=== PATIENT | female | born 1950 | race Caucasian/White ===

== ENCOUNTER 2017-10-17 00:20 | Emergency (ER) | payer MEDICARE, OTHER ==
[2017-10-17 00:29] VITALS: BP 198/120
[2017-10-17] MEDS ORDERED: Labetalol 100 MG/20 ML MDV IVPUSH STA (01:13)
--- NOTE | 2017-10-17 01:16 | EDM.PDOC ---
ED HPI GENERAL MEDICAL PROBLEM - General Chief Complaint: Neurological Problem Stated Complaint: NUMBNESS IN SIDE OF FACE AND ARM Time Seen by Provider: 10/17/17 00:50 Source of Information: Reports: Patient History Limitations: Reports: No Limitations - History of Present Illness INITIAL COMMENTS - FREE TEXT/NARRATIVE: The patient states that she has been experiencing a shooting pain that begins in her epigastrium and shoots a few inches to her left lower chest. It is a sharp pain lasting only a moment. She has approximately 2-3 episodes per day, and she has not identified any modifiers. She also reports posterior left mandible pain or numbness intermittently over the past year. When present, it will tend to last for minutes. She also reports feeling cold sweats over the past 2 months, and lightheadedness over the past week. She denies having a headache or blurry vision. She has had nausea, but no emesis, whenever she has a lightheadedness. She states that she sometimes feels shortness of breath, relieved when she sighs. She has also felt palpitations - strong heartbeats, for about one week. She acknowledges that she has been feeling anxious. The patient has been taking Dramamine, which helps. She recently got over a cold , during which time she was taking TheraFlu, Robitussin, and Advil. No recent constipation, diarrhea, or urinary symptoms. The patient states that she has a history of GERD, but does not believe her symptoms could be related to GERD, as she takes omeprazole every day. The patient's PCP is Vivek. Ms. Carballo has not been notified of the patient's symptoms, however, the patient has an appointment to see Kavita Haris this coming 10/20/2017 at 15:30. - Related Data Allergies Allergy/AdvReac Type Severity Reaction Status Date / Time No Known Allergies Allergy Verified 10/17/17 00:29 Home Meds: Home Meds Levothyroxine Sodium [Synthroid] 125 mcg PO DAILY 09/26/14 [History] Omeprazole 20 mg PO DAILY 10/17/17 [History] Past Medical History Gastrointestinal History: Reports: GERD Endocrine/Metabolic History: Reports: Hypothyroidism - Past Surgical History HEENT Surgical History: Reports: Tonsillectomy GI Surgical History: Reports: Cholecystectomy (2010), EGD Female Surgical History: Reports: Oophorectomy (left) Social & Family History - Tobacco Use Smoking Status *Q: Never Smoker - Alcohol Use Alcohol Use History: Yes Days Per Week of Alcohol Use: 0 Alcohol Use Frequency: Rarely - Recreational Drug Use Recreational Drug Use: No - Living Situation & Occupation Living situation: Reports: , Alone Occupation: Retired ED ROS GENERAL - Review of Systems Review Of Systems: ROS reveals no pertinent complaints other than HPI. ED EXAM, GENERAL - Physical Exam Exam: See Below Exam Limited By: No Limitations General Appearance: Alert, WD/WN, No Apparent Distress Eye Exam: Bilateral Eye: Normal Inspection Ears: Normal External Exam, Hearing Grossly Normal Nose: Normal Inspection, No Blood Throat/Mouth: Normal Inspection, Normal Lips, Normal Voice, No Airway Compromise Head: Atraumatic, Normocephalic Neck: Normal Inspection, Full Range of Motion Respiratory/Chest: No Respiratory Distress, Lungs Clear, Normal Breath Sounds, No Accessory Muscle Use, Chest Non-Tender Cardiovascular: Normal Peripheral Pulses, Regular Rate, Rhythm, No Edema, No Gallop, No JVD, No Murmur, No Rub Peripheral Pulses: 4+: Radial (L), Radial (R) GI/Abdominal: Normal Bowel Sounds, Soft, Non-Tender, No Organomegaly, No Distention, No Abnormal Bruit, No Mass (Female) Exam: Deferred Rectal (Female) Exam: Deferred Back Exam: Normal Inspection, Full Range of Motion, NT Extremities: Normal Inspection, Normal Range of Motion, No Pedal Edema, Normal Capillary Refill Neurological: Alert, Oriented, Normal Cognition, No Motor/Sensory Deficits Psychiatric: Normal Affect Skin Exam: Warm, Dry, Intact, Normal Color, No Rash EKG INTERPRETATION EKG Date: 10/17/17 Time: 00:45 Rhythm: NSR Rate (Beats/Min): 82 [place]: Normal P-Wave: Present QRS: Normal ST-T: Normal QT: Normal Comparison: No Change (09/26/2014) Course - Vital Signs Last Recorded V/S: Last Vital Signs Temp 36.6 C 10/17/17 00:25 Pulse 93 10/17/17 00:25 Resp 16 10/17/17 00:25 BP 198/120 H 10/17/17 00:25 Pulse Ox 96 10/17/17 00:25 - Orders/Labs/Meds Orders: Active Orders 24 hr Category Date Time Status EKG Documentation Completion [RC] ASDIRECTED Care 10/17/17 00:38 Active Chest 2V [CR] Stat Exams 10/17/17 01:12 Taken EKG 12 Lead [EK] Stat Ther 10/17/17 00:38 Ordered Labs: Laboratory Tests 10/17/17 10/17/17 10/17/17 Range/Units 01:42 01:42 01:42 WBC 6.96 (3.98-10.04) K/mm3 RBC 4.52 (3.98-5.22) M/mm3 Hgb 13.3 (11.2-15.7) gm/L Hct 40.7 (34.1-44.9) % MCV 90.0 (79.4-94.8) fl MCH 29.4 (25.6-32.2) pg MCHC 32.7 (32.2-35.5) g/dl RDW Std Deviation 42.4 (36.4-46.3) fL Plt Count 244 (182-369) K/mm3 MPV 9.7 (9.4-12.3) fl Neutrophils % (Manual) 47 (40-60) % Band Neutrophils % 2 (0-10) % Lymphocytes % (Manual) 35 (20-40) % Atypical Lymphs % 0 % Monocytes % (Manual) 9 (2-10) % Eosinophils % (Manual) 6 H (0.7-5.8) % Basophils % (Manual) 1 (0.1-1.2) Platelet Estimate Adequate RBC Morph Comment Normal PT 9.9 (8.0-13.0) SECONDS INR 0.93 APTT 24 (22-36) SECONDS D-Dimer, Quantitative 0.51 (0.19-0.59) mg/L Sodium 142 (136-145) mEq/L Potassium 3.7 (3.5-5.1) mEq/L Chloride 106 (98-107) mEq/L Carbon Dioxide 28 (21-32) mEq/L Anion Gap 11.7 (5-15) BUN 15 (7-18) mg/dL Creatinine 0.9 (0.55-1.02) mg/dL Est Cr Clr Drug Dosing 60.60 mL/min Estimated GFR (MDRD) > 60 (>60) mL/min BUN/Creatinine Ratio 16.7 (14-18) Glucose 108 (80-115) mg/dL Calcium 9.2 (8.5-10.1) mg/dL Total Bilirubin 0.4 (0.2-1.0) mg/dL AST 18 (15-37) U/L ALT 27 (14-59) U/L Alkaline Phosphatase 81 (46-116) U/L Troponin I < 0.017 (0.00-0.056) ng/mL NT-Pro-B Natriuret Pep (0-125) pg/mL Total Protein 7.0 (6.4-8.2) g/dl Albumin 3.4 (3.4-5.0) g/dl Globulin 3.6 gm/dL Albumin/Globulin Ratio 0.9 L (1-2) 10/17/17 Range/Units 01:42 WBC (3.98-10.04) K/mm3 RBC (3.98-5.22) M/mm3 Hgb (11.2-15.7) gm/L Hct (34.1-44.9) % MCV (79.4-94.8) fl MCH (25.6-32.2) pg MCHC (32.2-35.5) g/dl RDW Std Deviation (36.4-46.3) fL Plt Count (182-369) K/mm3 MPV (9.4-12.3) fl Neutrophils % (Manual) (40-60) % Band Neutrophils % (0-10) % Lymphocytes % (Manual) (20-40) % Atypical Lymphs % % Monocytes % (Manual) (2-10) % Eosinophils % (Manual) (0.7-5.8) % Basophils % (Manual) (0.1-1.2) Platelet Estimate RBC Morph Comment PT (8.0-13.0) SECONDS INR APTT (22-36) SECONDS D-Dimer, Quantitative (0.19-0.59) mg/L Sodium (136-145) mEq/L Potassium (3.5-5.1) mEq/L Chloride (98-107) mEq/L Carbon Dioxide (21-32) mEq/L Anion Gap (5-15) BUN (7-18) mg/dL Creatinine (0.55-1.02) mg/dL Est Cr Clr Drug Dosing mL/min Estimated GFR (MDRD) (>60) mL/min BUN/Creatinine Ratio (14-18) Glucose (80-115) mg/dL Calcium (8.5-10.1) mg/dL Total Bilirubin (0.2-1.0) mg/dL AST (15-37) U/L ALT (14-59) U/L Alkaline Phosphatase (46-116) U/L Troponin I (0.00-0.056) ng/mL NT-Pro-B Natriuret Pep 112 (0-125) pg/mL Total Protein (6.4-8.2) g/dl Albumin (3.4-5.0) g/dl Globulin gm/dL Albumin/Globulin Ratio (1-2) Meds: Medications Discontinued Medications Generic Name Dose Route Start Last Admin Trade Name Freq PRN Reason Stop Dose Admin Labetalol HCl 10 mg 10/17/17 01:13 Normodyne IVPUSH 10/17/17 01:14 ONETIME STA Protocol - Re-Assessments/Exams Free Text/Narrative Re-Assessment/Exam: 10/17/17 01:15 The patient's BP has been high here in the ED. Initial BP of 198/120, although most recent BP of 167/93, without treatment. 10/17/17 01:56 Two-view chest radiograph appears to be grossly normal. Cardiac silhouette is within normal limits. No pulmonary vascular congestion. No pleural effusions. No focal infiltrate. No pneumothorax. Formal read per the Radiologist pending. 10/17/17 02:50 Test results discussed with the patient. Today's workup is entirely unremarkable , and does not extend the cause of her symptoms. I suspect that the patient may be suffering from GERD, as well as some anxiety, although cardiac etiology cannot be completely ruled out. The patient states that she has an appointment to see her PCP, Soheila Carballo, this coming 10/20/2017 at 15:30. I'm recommending that she discuss with Kavita Haris the possibility of a stress test and an EGD. The patient may also benefit from switching to a different proton pump inhibitor, as the omeprazole may have stopped working for her. Departure - Departure Time of Disposition: 02:51 Disposition: Home, Self-Care 01 Condition: Good Clinical Impression: Chest pain of uncertain etiology, Mandible pain, Lightheadedness, Nausea - Discharge Information Referrals: Gold,Soheila, [employer] JUDGE [Primary Care Provider] - Forms: ED Department Discharge Additional Instructions: You were seen in the emergency room for shooting pain from your abdomen to her chest, left jaw pain, cold sweats, lightheadedness, and nausea. Workup in the ER included blood work, an ECG, and a chest x-ray. Your entire workup was unremarkable. You have not suffered a heart attack. You do not have a blood clot in your lungs. You do not have pneumonia. You do not have a collapsed lung. Your kidney function is normal. The cause of your symptoms is unclear, but is likely related to GERD, and perhaps some anxiety. When you follow-up with Ms. Carballo on 10/20/2017, consider discussing getting an EGD and a switching to a different proton pump inhibitor. While your cardiac workup was normal, a cardiac component cannot be excluded entirely. Consider also discussing getting a stress test. If any other problems, please do not hesitate to return to the ER. - My Orders Last 24 Hours: My Active Orders 10/17/17 00:38 EKG Documentation Completion [RC] ASDIRECTED EKG 12 Lead [EK] Stat 10/17/17 01:12 Chest 2V [CR] Stat - Assessment/Plan Last 24 Hours: My Active Orders 10/17/17 00:38 EKG Documentation Completion [RC] ASDIRECTED EKG 12 Lead [EK] Stat 10/17/17 01:12 Chest 2V [CR] Stat
--- NOTE | 2017-10-17 07:35 | CR ---
Chest: Two views of the chest were obtained. Comparison: No prior chest x-ray. Heart size and mediastinum are within normal limits. Lungs are clear. Bony structures appear within normal limits for the patient's age. Impression: 1. Nothing acute is appreciated on two-view chest x-ray. Diagnostic code #1
== END 2017-10-17 03:05 | disposition home or self-care (01) ==
LOC: JD.ED 00:20
DX: R07.9 Chest pain, unspecified (principal); R42 Dizziness and giddiness; R11.0 Nausea; R68.84 Jaw pain; K21.9 Gastro-esophageal reflux disease without esophagitis; E03.9 Hypothyroidism, unspecified; Z90.49 Acquired absence of other specified parts of digestive tract; Z79.899 Other long term (current) drug therapy
CPT/HCPCS: 36415; 71046; 71046-26; 80053; 83880; 84484; 85025; 85379; 85610; 85730; 93005; 93010; 99284-25; 99285-25

== ENCOUNTER 2018-11-20 02:48 | Emergency (ER) | payer MEDICARE, OTHER ==
[2018-11-20 03:18] VITALS: BP 175/117
[2018-11-20] MEDS ORDERED: Lidocaine 1% 10 ML MDV INJECT ONE (03:20)
[2018-11-20] MEDS ORDERED: cefTRIAXone 1 GM, Lidocaine 1% 2.1 ML IM SCH ×2 (03:30)
--- NOTE | 2018-11-20 03:57 | EDM.PDOC ---
ED HPI GENERAL MEDICAL PROBLEM - General Chief Complaint: Upper Extremity Injury/Pain Stated Complaint: RIGHT MIDDLE FINGER SWOLLEN AND INFECTED Time Seen by Provider: 11/20/18 03:15 Source of Information: Reports: Patient History Limitations: Reports: No Limitations - History of Present Illness INITIAL COMMENTS - FREE TEXT/NARRATIVE: The patient presents with a red swollen right middle finger. She noticed this a couple days ago but it has gotten much worse in the past 12 hours. She noticed a couple bumps a couple days ago and she squeezed them and now more pain and redness. She does not remember injuring her finger. Onset: Gradual Duration: Day(s): Location: Reports: Upper Extremity, Right (middle finger) Quality: Reports: Sharp Severity: Severe Improves with: Reports: Immobilization Worsens with: Reports: Movement Associated Symptoms: Reports: No Other Symptoms Right Finger-Middle Pain Score (Numeric/FACES): 6 - Related Data Allergies Allergy/AdvReac Type Severity Reaction Status Date / Time No Known Allergies Allergy Verified 11/20/18 03:19 Home Meds: Home Meds Levothyroxine Sodium [Synthroid] 125 mcg PO DAILY 09/26/14 [History] Omeprazole 20 mg PO DAILY 10/17/17 [History] Cephalexin [Keflex] 500 mg PO QID #40 capsule 11/20/18 [Rx] Past Medical History Gastrointestinal History: Reports: GERD Endocrine/Metabolic History: Reports: Hypothyroidism - Past Surgical History HEENT Surgical History: Reports: Tonsillectomy GI Surgical History: Reports: Cholecystectomy, EGD Female Surgical History: Reports: Oophorectomy Social & Family History - Tobacco Use Smoking Status *Q: Never Smoker - Caffeine Use Caffeine Use: Reports: Coffee - Recreational Drug Use Recreational Drug Use: No - Living Situation & Occupation Living situation: Reports: , Alone Occupation: Retired Review of Systems - Review of Systems Review Of Systems: See Below Constitutional: Reports: No Symptoms Eyes: Reports: No Symptoms Ears: Reports: No Symptoms Nose: Reports: No Symptoms Mouth/Throat: Reports: No Symptoms Respiratory: Reports: No Symptoms Cardiovascular: Reports: No Symptoms GI/Abdominal: Reports: No Symptoms Genitourinary: Reports: No Symptoms Musculoskeletal: Reports: Other (Right middle finger has redness and swelling) ED EXAM, GENERAL - Physical Exam Exam: See Below Exam Limited By: No Limitations General Appearance: Alert, No Apparent Distress Ears: Normal External Exam Nose: Normal Inspection Head: Atraumatic, Normocephalic Neck: Normal Inspection Respiratory/Chest: No Respiratory Distress Extremities: Other (Erythema and edema to the right middle finger with fluctuance to the dorsal aspece of the distal finger but not all the way to the nail bed. Good capillary refill distally but decreased sensation.) ED TRAUMA EXTREMITY PROCEDURES - I&D Site: rigth miffle finger Skin Prep: Chlorhexidine (Hibiciens) Local Anesthesia: Lidocaine: 1% Plain Local Anesthetic Volume: 1cc Area Incised With: 11 Blade Drainage: Bloody Probed to Break Up Loculations: No Sterile Dressing: Adhesive Dressing Complications: No Course - Vital Signs Last Recorded V/S: Last Vital Signs Temp 98.9 F 11/20/18 03:10 Pulse 91 11/20/18 03:10 Resp 18 11/20/18 03:10 BP 175/117 H 11/20/18 03:10 Pulse Ox 96 11/20/18 03:10 - Orders/Labs/Meds Orders: Active Orders 24 hr Category Date Time Status cefTRIAXone [Rocephin] 1 gm Med 11/20/18 03:30 Active Lidocaine 1% [Xylocaine 1%] 2.1 ml IM Q24H Medication Orders Ceftriaxone Sodium 1 gm/ (Lidocaine HCl 2.1 ml) 0 gm IM Q24H OSMAN Last Admin: 11/20/18 03:45 Dose: 1 inj Meds: Medications Generic Name Dose Route Start Last Admin Trade Name Freq PRN Reason Stop Dose Admin Ceftriaxone Sodium 1 gm/ 0 gm 11/20/18 03:30 11/20/18 03:45 Lidocaine HCl 2.1 ml IM 1 inj Q24H OSMAN Administration Discontinued Medications Generic Name Dose Route Start Last Admin Trade Name Freq PRN Reason Stop Dose Admin Lidocaine HCl 10 ml 11/20/18 03:20 11/20/18 03:45 Xylocaine 1% INJECT 11/20/18 03:21 10 ml ONETIME ONE Administration - Re-Assessments/Exams Free Text/Narrative Re-Assessment/Exam: 11/20/18 03:56 I opened the abscess with an 11 blader. There was bloody drainage. I did get cultures. I gave her a shot of rocephin and I will get her on some keflex pending culture reports. Departure - Departure Time of Disposition: 04:00 Disposition: Home, Self-Care 01 Condition: Good Clinical Impression: Cellulitis and abscess of finger, unspecified - Discharge Information *PRESCRIPTION DRUG MONITORING PROGRAM REVIEWED*: Not Applicable *COPY OF PRESCRIPTION DRUG MONITORING REPORT IN PATIENT ELLI: Not Applicable Prescriptions: Cephalexin [Keflex] 500 mg PO QID #40 capsule Referrals: Soheila Carballo NP [Primary Care Provider] - Erik Cameron MD [Physician] - 1 Week Additional Instructions: Soak your finger in warm soapy water 2 times per day and apply antibiotic ointment after. Take the keflex 4 times per day for 10 days. Take tylenol or motrin for pain. Follow up with Dr Cameron on Friday or Friday. Please return if you are worse. - My Orders Last 24 Hours: My Active Orders 11/20/18 03:30 cefTRIAXone [Rocephin] 1 gm Lidocaine 1% [Xylocaine 1%] 2.1 ml IM Q24H - Assessment/Plan Last 24 Hours: My Active Orders 11/20/18 03:30 cefTRIAXone [Rocephin] 1 gm Lidocaine 1% [Xylocaine 1%] 2.1 ml IM Q24H
== END 2018-11-20 04:10 | disposition home or self-care (01) ==
LOC: JD.ED 02:48
DX: L02.511 Cutaneous abscess of right hand (principal); L03.011 Cellulitis of right finger; E03.9 Hypothyroidism, unspecified; K21.9 Gastro-esophageal reflux disease without esophagitis; Z79.899 Other long term (current) drug therapy
CPT/HCPCS: 10060; 87075; 87205; 96372; 99283; J0696; J2001

== ENCOUNTER 2018-11-21 12:07 | Emergency (ER) | payer MEDICARE, OTHER ==
[2018-11-21] MEDS ORDERED: Sodium Chloride 0.9% 10 ML Syringe FLUSH PRN (12:27)
[2018-11-21] MEDS ORDERED: Linezolid 600 MG in Premix Bag 1 BAG IV ONE (12:28)
[2018-11-21] MEDS ORDERED: Doxycycline 100 MG Cap PO ONE (12:29)
--- NOTE | 2018-11-21 12:29 | EDM.PDOC ---
ED HPI GENERAL MEDICAL PROBLEM - General Chief Complaint: Upper Extremity Injury/Pain Stated Complaint: FINGER INFECTION NOT GETTING BETTER Time Seen by Provider: 11/21/18 12:20 Source of Information: Reports: Patient History Limitations: Reports: No Limitations - History of Present Illness INITIAL COMMENTS - FREE TEXT/NARRATIVE: 68-year-old female presents to the ED at the request of Dr. Woods was working the walk-in clinic at [place] this morning. Patient was seen here on , November 20 of with an obvious paronychial infection on the dorsal aspect of her right third finger. Dr. Murdock did open it and drain some purulent material and obtained enough for culture which today is growing out nothing. She was started on IM Rocephin 1 g and oral cephalexin 500 mg 3 times a day. She attended the clinic today because the areas become more painful more swollen and appears to contain more pus. Pain is keeping her awake at night. Now erythema spreading up the dorsal finger and dorsal hand towards her wrist. She has no systemic signs of illness over Dr. Woods indicated that her white blood cell Was 13,000 or better. Her CRP was around 30. Patient states she's not been able sleep for the last 2 nights due to the severity of the pain. She states pain medications typically make her vomit although they were offered to her by Dr. Valentin she declined. Of note the patient is right-hand dominant. Onset: Gradual Onset Date: 11/18/18 Duration: Day(s):, Getting Worse Location: Reports: Upper Extremity, Right (Right dorsal third finger proximal phalanx) Quality: Reports: Ache, Throbbing Severity: Moderate (8 out of 10) Improves with: Reports: None Worsens with: Reports: Other Context: Denies: Activity (Any touching of it makes it much more painful), Exercise, Lifting, Sick Contact, Trauma, Other Associated Symptoms: Denies: Fever/Chills, Headaches, Loss of Appetite, Malaise , Nausea/Vomiting, Rash, Shortness of Breath, Syncope Treatments HOSPITAL INSURANCE REPRESENTATIVE: Reports: NSAIDS (Motrin.) Right Finger-Middle Pain Score (Numeric/FACES): 5 - Related Data Allergies Allergy/AdvReac Type Severity Reaction Status Date / Time No Known Allergies Allergy Verified 11/21/18 12:19 Home Meds: Home Meds Levothyroxine Sodium [Synthroid] 125 mcg PO DAILY 09/26/14 [History] Omeprazole 20 mg PO DAILY 10/17/17 [History] Cephalexin [Keflex] 500 mg PO QID #40 capsule 11/20/18 [Rx] Clindamycin HCl 300 mg PO TID #21 capsule 11/21/18 [Rx] Doxycycline [Vibramycin] 100 mg PO BID #20 cap 11/21/18 [Rx] Ondansetron [Zofran] 4 mg BUCCAL Q6H PRN #10 tab 11/21/18 [Rx] oxyCODONE HCl/Acetaminophen [Percocet 5-325 mg Tablet] 1 - 2 each PO Q4H PRN # 10 tablet 11/21/18 [Rx] Past Medical History Gastrointestinal History: Reports: GERD (Well-controlled on Prilosec) Endocrine/Metabolic History: Reports: Hypothyroidism (She is on supplement.) - Past Surgical History HEENT Surgical History: Reports: Tonsillectomy GI Surgical History: Reports: Cholecystectomy, EGD Female Surgical History: Reports: Oophorectomy Social & Family History - Caffeine Use Caffeine Use: Reports: Coffee - Living Situation & Occupation Living situation: Reports: , Alone Occupation: Retired Review of Systems - Review of Systems Review Of Systems: See Below Constitutional: Denies: Chills, Diaphoresis, Fever, Weakness, Other Eyes: Reports: No Symptoms Ears: Reports: No Symptoms Nose: Reports: No Symptoms, Previous Injury Respiratory: Reports: No Symptoms Cardiovascular: Reports: No Symptoms GI/Abdominal: Reports: No Symptoms, Other Musculoskeletal: Reports: Other (See history of present illness. She has a paronychial infection dorsal aspect of her right third finger which is worsening instead of improving on current oral antibiotic therapy.) Skin: Reports: Other Neurological: Reports: No Symptoms (Radicular infection dorsal aspect right third finger as mentioned in history of present illness) Psychiatric: Reports: No Symptoms ED EXAM, GENERAL - Physical Exam Exam: See Below Exam Limited By: No Limitations General Appearance: Alert, WD/WN, Mild Distress, Other (Appears to be quite uncomfortable.) Eye Exam: Bilateral Eye: Normal Inspection Extremities: Other (Examination was limited to her right hand. She has an obvious paronychia infection with purulent debris just proximal to the right third nail bed. There is erythema and swelling of the entire right dorsal third finger and sprain erythema over the third minute carpal distribution towards the wrist. There was no epitrochlear lymphadenopathy although she feels pain up towards her elbow. She has no ability to flex at the DIP joint in minimal flexion at the PIP joint.) Neurological: Alert Psychiatric: Normal Affect Course - Vital Signs Last Recorded V/S: Last Vital Signs Temp 36.9 C 11/21/18 12:20 Pulse 78 11/21/18 12:20 Resp 17 11/21/18 12:20 BP 161/96 H 11/21/18 12:20 Pulse Ox 94 L 11/21/18 12:20 - Orders/Labs/Meds Orders: Active Orders 24 hr Category Date Time Status Peripheral IV Care [RC] . DIRECTED Care 11/21/18 12:27 Active CULTURE WOUND [RM] Stat Lab 11/21/18 12:45 Received Ketorolac [Toradol] Med 11/21/18 12:30 Active 30 mg IVPUSH ONETIME Sodium Chloride 0.9% [Saline Flush] Med 11/21/18 12:27 Active 10 ml FLUSH ASDIRECTED PRN Peripheral IV Insertion Adult [OM.PC] Stat Oth 11/21/18 12:27 Ordered Medication Orders Ketorolac Tromethamine (Toradol) 30 mg IVPUSH ONETIME OSMAN Last Admin: 11/21/18 12:49 Dose: 30 mg Sodium Chloride (Saline Flush) 10 ml FLUSH ASDIRECTED PRN PRN Reason: Keep Vein Open Last Admin: 11/21/18 12:39 Dose: 10 ml Meds: Medications Generic Name Dose Route Start Last Admin Trade Name Freq PRN Reason Stop Dose Admin Ketorolac Tromethamine 30 mg 11/21/18 12:30 11/21/18 12:49 Toradol IVPUSH 30 mg ONETIME OSMAN Administration Sodium Chloride 10 ml 11/21/18 12:27 11/21/18 12:39 Saline Flush FLUSH 10 ml ASDIRECTED PRN Administration Keep Vein Open Discontinued Medications Generic Name Dose Route Start Last Admin Trade Name Freq PRN Reason Stop Dose Admin Doxycycline Hyclate 200 mg 11/21/18 12:29 11/21/18 12:39 Vibramycin PO 11/21/18 12:30 200 mg ONETIME ONE Administration Linezolid 600 mg/ Premix 300 mls @ 300 mls/hr 11/21/18 12:28 11/21/18 12:50 IV 11/21/18 13:27 300 mls/hr ONETIME ONE Administration - Radiology Interpretation Free Text/Narrative:: 68-year-old female presents to the ED with a persistent paronychia infection of her dorsal right third finger. Swelling started 4 days ago and she did attend the ED in the wee hours of the morning on November 20. Dr. Murdock did sukh the area and obtained purulent material for culture. She was treated with 1 g of Rocephin IM and oral cephalexin 500 mg 3 times a day which she's been taking faithfully. She wasn't able to sleep last 2 nights due to throbbing of the finger. She attended the walk-in clinic at [place] this morning and was sent back to the ED. It's obvious that the infection has accumulated and there is a little swelling just proximal to the nail but bed. There is now diffuse erythema and swelling of the entire finger and faint erythema over the dorsal aspect of the hand towards the wrist. Apparently her lab work suggest her white count was slightly elevated at 13,000 and CRP of 30. This suggests that she is starting to develop systemic signs of infection. Plan I'm going to reopen the wound with an 18-gauge needle to relieve the pus. She'll be given Zosyn 600 mg IV. She'll be given doxycycline 200 mg by mouth. The plan will be to place her on doxycycline as an outpatient treatment plan for suspect MRSA. She is now willing to take pain medication and I will supply Percocet tablets one or 2 every 4-6 hours needed for pain relief with Zofran 4 mg sublingually every 4 hours to prevent nausea and vomiting from the narcotic. - Re-Assessments/Exams Free Text/Narrative Re-Assessment/Exam: 11/21/18 13:59 patient has completed Zyvox 600 mg IV and doxycycline 200 mg orally. He will be discharged home. She will pipe apply bacitracin ointment to her wound and cleanse it daily. Will be placed on Doxycycline 100 mg twice daily for the next 10 days for MRSA coverage and Clindamycin 300mg TID for 7 days. Also given 10 Percocet tablets one tablet every 4-6 hours with Motrin 600 mg tablet for pain relief. Zofran 4 mg every 4 hours as needed for relief of nausea vomiting. Follow-up in clinic on Friday to make sure that it is responding to antibiotic therapy. Departure - Departure Time of Disposition: 14:01 Disposition: Home, Self-Care 01 Condition: Fair Clinical Impression: Cellulitis of finger of right hand - Discharge Information *PRESCRIPTION DRUG MONITORING PROGRAM REVIEWED*: Not Applicable *COPY OF PRESCRIPTION DRUG MONITORING REPORT IN PATIENT ELLI: Not Applicable Prescriptions: Clindamycin HCl 300 mg PO TID #21 capsule Doxycycline [Vibramycin] 100 mg PO BID #20 cap Ondansetron [Zofran] 4 mg BUCCAL Q6H PRN #10 tab PRN Reason: nausea or vomiting oxyCODONE HCl/Acetaminophen [Percocet 5-325 mg Tablet] 1 - 2 each PO Q4H PRN # 10 tablet PRN Reason: pain relief. Instructions: Cellulitis, Adult Referrals: Soheila Carballo NP [Primary Care Provider] - Forms: ED Department Discharge Additional Instructions: Evaluation of wound infection right dorsal third finger. The entire finger is now become swollen and erythematous due to spreading infection called cellulitis. This means infection spreading under the skin. It is also starting to spread across the dorsal aspect of your hand towards her right wrist. Not much pus was obtained from opening the wound again. Tracer done at the clinic today and did not reveal any fractures. You're treated with intravenous antibiotic Zyvox 600 mg in the emergency room to bring infection under control little bit quicker. Also first dose of doxycycline 200 mg was given in the ED. Doxycycline is to be continued 100 mg twice daily for the next 10 days with the next tablet due before bed tonight with a little fluid in your stomach. Second antibiotic is to be clindamycin 300 mg 3 times daily with first 1 to be taken when you get the prescription today and the second one again later tonight. Pain medication is Motrin 600 mg every 6 hours as needed for pain relief. Suggest Percocet tablet 5/325 mg one every 6 hours as well with the Motrin tablet for pain relief. Suggest taking Zofran 4 mg under the tongue every 6 hours when you take the Percocet tablets was not to have any nausea vomiting or adverse effects from the Percocet. Expect the finger start to look much improved over the next 48-72 hours. I would suggest that it be seen in clinic on Friday with your primary care physician X sure that it is responding to current antibiotic therapy. She'll cultures were negative for any positive organisms. Wecall is a sterile abscess. - My Orders Last 24 Hours: My Active Orders 11/21/18 12:27 Peripheral IV Care [RC] . DIRECTED Sodium Chloride 0.9% [Saline Flush] 10 ml FLUSH ASDIRECTED PRN Peripheral IV Insertion Adult [OM.PC] Stat 11/21/18 12:30 Ketorolac [Toradol] 30 mg IVPUSH ONETIME 11/21/18 12:45 CULTURE WOUND [RM] Stat - Assessment/Plan Last 24 Hours: My Active Orders 11/21/18 12:27 Peripheral IV Care [RC] . DIRECTED Sodium Chloride 0.9% [Saline Flush] 10 ml FLUSH ASDIRECTED PRN Peripheral IV Insertion Adult [OM.PC] Stat 11/21/18 12:30 Ketorolac [Toradol] 30 mg IVPUSH ONETIME 11/21/18 12:45 CULTURE WOUND [RM] Stat
[2018-11-21 12:30] VITALS: BP 161/96
[2018-11-21] MEDS ORDERED: Ketorolac 30 MG/ML SDV IVPUSH SCH (12:30)
== END 2018-11-21 14:11 | disposition home or self-care (01) ==
LOC: JD.ED 12:07
DX: L03.011 Cellulitis of right finger (principal); K21.9 Gastro-esophageal reflux disease without esophagitis; E03.9 Hypothyroidism, unspecified; Z79.899 Other long term (current) drug therapy
CPT/HCPCS: 10060; 87070; 96365; 96375; 99283; A9270; J1885; J2020; 99284

== ENCOUNTER 2018-12-22 07:07 | Day surgery (SDC) | payer MEDICARE, OTHER ==
[~2018-12-22 07:07] MED LIST: Lactated Ringers 1,000 ML IV SCH; Lidocaine 1%/Sod Bicarbonate in NS 8.4% 1 ML Syringe IDERM PRN; Sodium Chloride 0.9% 10 ML Syringe FLUSH PRN
[2018-12-22] MEDS ORDERED: Bupivacaine 0.25% 30 ML SDV ONE (11:34)
[2018-12-22] MEDS ORDERED: Lidocaine 1% 30 ML SDV ONE (11:34)
--- NOTE | 2018-12-22 11:34 | PCM.PREANE ---
Preanesthetic Assessment - Anesthesia/Transfusion/Family Hx Anesthesia History: Prior Anesthesia Without Reaction Family History of Anesthesia Reaction: No Transfusion History: No Prior Transfusion(s) Intubation History: Unknown - Review of Systems General: No Symptoms Pulmonary: No Symptoms Cardiovascular: No Symptoms, Other Gastrointestinal: No Symptoms Neurological: No Symptoms Other: Reports: None, Thyroid Problems - Physical Assessment NPO Status Date: 12/22/18 NPO Status Time: 06:00 O2 Sat by Pulse Oximetry: 94 Respiratory Rate: 16 Vital Signs: Last Vital Signs Temp 36.8 C 12/22/18 11:00 Pulse 85 12/22/18 11:00 Resp 16 12/22/18 11:00 BP 141/89 H 12/22/18 11:00 Pulse Ox 94 L 12/22/18 11:00 Height: 1.68 m Weight: 71.214 kg ASA Class: 2 Mental Status: Alert & Oriented x3 Airway Class: Mallampati = 1 Dentition: Reports: Normal Dentition ROM/Head Extension: Full Lungs: Clear to Auscultation, Normal Respiratory Effort Cardiovascular: Regular Rate, Regular Rhythm - Allergies Allergies/Adverse Reactions: Allergies Allergy/AdvReac Type Severity Reaction Status Date / Time apple Allergy Itching Verified 12/17/18 07:22 carrot Allergy Itching Verified 12/17/18 07:22 legumes Allergy Itching Verified 12/17/18 07:22 nut - unspecified Allergy Itching Verified 12/17/18 07:22 potato Allergy Itching Verified 12/17/18 07:22 - Blood Blood Available: No Product(s) Available: None - Anesthesia Plan Pre-Op Medication Ordered: Other - Acknowledgements Anesthesia Type Planned: MAC Pt an Appropriate Candidate for the Planned Anesthesia: Yes Alternatives and Risks of Anesthesia Discussed w Pt/Guardian: Yes Pt/Guardian Understands and Agrees with Anesthesia Plan: Yes PreAnesthesia Questionnaire Gastrointestinal History: Reports: GERD (Well-controlled on Prilosec) Endocrine/Metabolic History: Reports: Hypothyroidism (She is on supplement.) - Past Surgical History HEENT Surgical History: Reports: Tonsillectomy GI Surgical History: Reports: Cholecystectomy, EGD Female Surgical History: Reports: Oophorectomy - HOME MEDS Home Medications: Home Meds Levothyroxine Sodium [Synthroid] 112 mcg PO DAILY 09/26/14 [History] Acetaminophen/HYDROcodone [Kirby 325-5 MG] 1 - 2 tab PO Q6H PRN #20 tablet 12/21 [Rx] L.acidoph,Paracasei, B.lactis [Probiotic] 50 mg PO BID 12/22/18 [History] - CURRENT (IN HOUSE) MEDS Current Meds: Current Medications Lactated Ringer's (Ringers, Lactated) 1,000 mls @ 125 mls/hr IV ASDIRECTED OSMAN Stop: 12/22/18 23:00 Last Admin: 12/22/18 11:10 Dose: 125 mls/hr Lidocaine/Sodium Bicarbonate (Buffered Lidocaine 1% In Ns 8.4%) 0.25 ml IDERM ONETIME PRN PRN Reason: Prior to IV Start Stop: 12/22/18 18:00 Sodium Chloride (Saline Flush) 10 ml FLUSH ASDIRECTED PRN PRN Reason: Keep Vein Open Stop: 12/22/18 18:00
[2018-12-22] MEDS ORDERED: Propofol 200 MG/20 ML SDV ONE (11:37)
[2018-12-22] MEDS ORDERED: fentaNYL 100 MCG/2 ML SDV ONE (11:37)
[2018-12-22] MEDS ORDERED: Midazolam 1 MG/ML 2 ML SDV ONE ×2 (11:38→12:26)
[2018-12-22] MEDS ORDERED: Ondansetron 4 MG/2 ML SDV ONE (12:30)
[2018-12-22] MEDS ORDERED: Ketorolac 30 MG/ML SDV ONE (12:31)
--- NOTE | 2018-12-22 13:17 | PCM.POSTAN ---
POST ANESTHESIA ASSESSMENT - MENTAL STATUS Mental Status: Alert - RESPIRATORY Respiratory Status: Respiratory Rate WNL, Airway Patent, O2 Saturation Stable - CARDIOVASCULAR CV Status: Pulse Rate WNL, Blood Pressure Stable - GASTROINTESTINAL GI Status: No Symptoms - POST OP HYDRATION Hydration Status: Adequate & Stable
--- NOTE | 2018-12-22 13:17 | PCM48HPAN ---
Post Anesthesia Note - EVALUATION WITHIN 48HRS OF ANESTHETIC Vital Signs in Normal Range: Yes Patient Participated in Evaluation: Yes Respiratory Function Stable: Yes Airway Patent: Yes Cardiovascular Function Stable: Yes Hydration Status Stable: Yes Pain Control Satisfactory: Yes Nausea and Vomiting Control Satisfactory: Yes Mental Status Recovered: Yes Resp Rate: 16
[2018-12-22] MEDS ORDERED: fentaNYL 100 MCG/2 ML SDV IVPUSH PRN (13:19)
[2018-12-22 14:29] VITALS: BP 129/83
--- NOTE | 2018-12-24 07:03 | PCM.OPNOTE ---
- General Post-Op/Procedure Note Date of Surgery/Procedure: 12/22/18 Operative Procedure(s): irrigation and debridement of right middle finger Pre Op Diagnosis: right middle finger cellulitis/osteomyelitis with possible abscess Post-Op Diagnosis: Same Anesthesia Technique: Local, MAC Primary Surgeon: Erik Cameron Anesthesia Provider: David Palma EBL in mLs: 10 Complications: None Condition: Good
--- NOTE | 2018-12-24 07:54 | OR ---
DATE OF OPERATION: 12/22/2018 SURGEON: Erik Cameron MD OPERATION PERFORMED: Irrigation and debridement of right middle finger, 2 square cm. PREOPERATIVE DIAGNOSIS: Right middle finger cellulitis/osteomyelitis with possible abscess. POSTOPERATIVE DIAGNOSIS: Right middle finger cellulitis/osteomyelitis with possible abscess. ANESTHESIA: Local MAC. BOOM OPERATOR: None. ANESTHESIA PROVIDER: David Palma CRNA. ESTIMATED BLOOD LOSS: Less than 10 mL. COMPLICATIONS: None. CONDITION: Stable. DESCRIPTION OF PROCEDURE: The patient was identified in the preop holding area where proper site was marked and identified by the surgeon. The patient was taken back to the operating theater, where after adequate anesthesia, the patient's right upper extremity was sterilely prepped and draped in the usual sterile fashion. OR time-out was performed. The patient received 2 g of IV Ancef. At this time, 1% lidocaine without epinephrine and 0.25% Marcaine were used to anesthetize the right middle finger doing a digital block. Once it was anesthetized, dorsal lateral incisions were made on both the radial and ulnar sides of the right middle finger just short of the eponychium back toward proximal to the DIP to the middle of the middle phalanx. At this time, the severe swelling was noted mostly around the eponychium. At this time, I did do a debridement around this region and only got a small amount of devitalized tissue, but there was no large fluid collection or large abscess. I did at this time roughen and scrape the tissue to make sure that any devitalized tissue was removed, roughly 2 square cm. At this time, I did also do an arthrotomy of the DIP joint just to make sure that the DIP joint did not have an infection inside of it. There were no signs of abscess or fluid collection in the DIP joint. At this time, 3 L of normal saline was irrigated with cysto tubing through the middle finger. At this time, a 4-0 nylon simple suture was used for closure of the skin, a sterile soft dressing was applied, and the patient was sent to PACU in stable condition. We will continue IV antibiotics. TANYA /[id number]
== END 2018-12-22 14:22 | disposition home or self-care (01) ==
LOC: JD.SDS 07:07
PROVIDERS: ATTEND Orthopaedic Surgery
DX: L03.011 Cellulitis of right finger (principal); M86.8X4 Other osteomyelitis, hand; E03.9 Hypothyroidism, unspecified; K21.9 Gastro-esophageal reflux disease without esophagitis; Z91.018 Allergy to other foods; Z79.899 Other long term (current) drug therapy
CPT/HCPCS: 11042; 87075; 87205; J1885; J2001; J2250; J2405; J2704; J3010; J3490; J7120; 00400

== ENCOUNTER 2021-03-05 09:00 | Emergency (ER) | payer MEDICARE, OTHER ==
[2021-03-05] MEDS ORDERED: Aspirin 81 MG Tab.Chew PO ONE (09:22)
--- NOTE | 2021-03-05 09:23 | EDM.PDOC ---
ED HPI GENERAL MEDICAL PROBLEM - General Chief Complaint: Neuro Symptoms/Deficits Stated Complaint: POSS STROKE Time Seen by Provider: 03/05/21 09:08 Source of Information: Reports: Patient History Limitations: Reports: No Limitations - History of Present Illness INITIAL COMMENTS - FREE TEXT/NARRATIVE: 71-year-old female presents to the ED for evaluation of blood pressure which was markedly elevated yesterday when she presented to [facility] with strokelike symptoms i.e. TIA with inability to speak or expressive aphasia symptoms and right-sided weakness. She appreciated dizziness when looking to the right as well as listing towards the right side with trying to walk. Symptoms abated within 10 to 15 minutes from their onset. The present she has a mild right-sided headache. She threw up yesterday morning which did not make her symptoms any better or worse. She is supposed to be on aspirin daily which she has not yet taken. She is on 2 new medications for blood pressure which she was not on prior. Onset: Sudden Onset Date: 03/04/21 Onset Time: 09:00 Duration: Hour(s):, Improving (Symptoms have resolved and she is normal fairly normal this morning.) Location: Reports: Other (Loss of ability to speak i.e. expressive aphasia with right-sided arm and leg weakness. TIA symptoms lasting about 15 minutes) Quality: Reports: Other (Inability to speak appropriately with expressive aphasia and right-sided weakness arm and leg.) Severity: Moderate Improves with: Reports: Other (In terms improved spontaneously and have not returned.) Context: Denies: Activity, Exercise, Lifting, Sick Contact, Trauma, Other Associated Symptoms: Reports: Headaches, Nausea/Vomiting (Vomit once after onset of), Weakness ( strokelike symptoms yesterday. Resolved weakness right arm and right leg). Denies: No Other Symptoms, Confusion, Chest Pain, Cough, cough w sputum, Diaphoresis, Fever/Chills, Loss of Appetite, Malaise, Rash (Mild right- sided headache today.), Seizure, Shortness of Breath, Syncope Treatments HOSPICE COMMUNITY LIAISON: Reports: Other (see below) (Aspirin.) Left Headache Pain Score (Numeric/FACES): 6 - Related Data Allergies Allergy/AdvReac Type Severity Reaction Status Date / Time apple Allergy Itching Verified 01/07/19 18:49 carrot Allergy Itching Verified 01/07/19 18:49 legumes Allergy Itching Verified 01/07/19 18:49 nut - unspecified Allergy Itching Verified 01/07/19 18:49 potato Allergy Itching Verified 01/07/19 18:49 Home Meds: Home Meds Levothyroxine Sodium [Synthroid] 112 mcg PO DAILY 09/26/14 [History] Acetaminophen/HYDROcodone [[place] 325-5 MG] 1 - 2 tab PO Q6H PRN #20 tablet 12/21/18 [Rx] L.acidoph,Paracasei, B.lactis [Probiotic] 50 mg PO BID 12/22/18 [History] Clopidogrel Bisulfate [Plavix] 75 mg PO DAILY #21 tablet 03/05/21 [Rx] Rosuvastatin [Crestor] 10 mg PO DAILY #30 tab 03/05/21 [Rx] Past Medical History Gastrointestinal History: Reports: GERD (Well-controlled on Prilosec) Endocrine/Metabolic History: Reports: Hypothyroidism (She is on supplement.) - Past Surgical History HEENT Surgical History: Reports: Tonsillectomy GI Surgical History: Reports: Cholecystectomy, EGD Female Surgical History: Reports: Oophorectomy Social & Family History - Caffeine Use Caffeine Use: Reports: Coffee - Living Situation & Occupation Living situation: Reports: , Alone Occupation: Retired ED ROS GENERAL - Review of Systems Review Of Systems: See Below Constitutional: Reports: Malaise, Weakness, Fatigue. Denies: Fever, Chills, Decreased Appetite, Weight Loss HEENT: Reports: Glasses, Vertigo (Sounds like vertigo symptoms with turning her head to the right noted yesterday better this morning.) Respiratory: Reports: No Symptoms Cardiovascular: Reports: Blood Pressure Problem (Defined to have significant hypertension yesterday with difficulty controlling blood pressure) Endocrine: Reports: Fatigue GI/Abdominal: Reports: Vomiting (Vomited once yesterday after stroke symptoms occurred.) : Reports: No Symptoms Musculoskeletal: Reports: Neck Pain, Back Pain Skin: Reports: No Symptoms (Occasional low back pain occasional neck pain) Neurological: Reports: Other (New onset of right arm and leg weakness with listing to the right side with walking associate with vertigo-like symptoms with looking to the right side. Apparently did have an expressive aphasia that lasted 10 to 15 minutes with return to normal ball neurological symptoms suggesting TIA.) Psychiatric: Reports: No Symptoms Hematologic/Lymphatic: Reports: No Symptoms Immunologic: Reports: No Symptoms ED EXAM, NEURO - Physical Exam Exam: See Below Exam Limited By: No Limitations General Appearance: Alert, WD/WN, Anxious, Other (Mildly anxious.) Eye Exam: Bilateral Eye: Normal Inspection, PERRL (No blepharal pallor or scleral icterus.) Throat/Mouth: Normal Inspection, Normal Lips, Normal Oropharynx Head Exam: Atraumatic, Normocephalic Neck: Normal Inspection, Supple, Non-Tender, Full Range of Motion. No: Lymphadenopathy (L), Lymphadenopathy (R) Respiratory/Chest: No Respiratory Distress, Lungs Clear, Normal Breath Sounds, No Accessory Muscle Use Cardiovascular: Normal Peripheral Pulses, Regular Rate, Rhythm, No Edema, No Gallop, No Murmur, No Rub, Other (Pressure is elevated 156 over) GI/Abdominal: Normal Bowel Sounds, Soft, Non-Tender, No Organomegaly, No Mass, Pelvis Stable Neurological: Alert, Normal Mood/Affect, Normal Dorsiflexion, CN II-XII Intact, Normal Plantar Flexion, Normal Gait, Normal Reflexes, No Motor/Sensory Deficits, Oriented x 3 DTR: 2+: Bicep (R), Bicep (L), Patella (R), Patella (L) Extremities: Normal Inspection, Normal Range of Motion, Non-Tender, No Pedal Edema Psychiatric: Normal Affect, Normal Mood Skin Exam: Dry, Intact, Normal Color, No Rash Course - Vital Signs Last Recorded V/S: Last Vital Signs Temp 36.4 C 03/05/21 09:49 Pulse 68 03/05/21 09:49 Resp 18 03/05/21 09:49 BP 135/95 H 03/05/21 09:49 Pulse Ox 97 03/05/21 09:49 - Orders/Labs/Meds Labs: Laboratory Tests 03/05/21 03/05/21 03/05/21 Range/Units 09:12 09:15 09:15 WBC 8.37 (3.98-10.04) K/mm3 RBC 5.08 (3.98-5.22) M/mm3 Hgb 15.0 (11.2-15.7) gm/dl Hct 45.9 H (34.1-44.9) % MCV 90.4 (79.4-94.8) fl MCH 29.5 (25.6-32.2) pg MCHC 32.7 (32.2-35.5) g/dl RDW Std Deviation 45.7 (36.4-46.3) fL Plt Count 304 (182-369) K/mm3 MPV 9.9 (9.4-12.3) fl Neut % (Auto) 47.0 (34.0-71.1) % Lymph % (Auto) 38.1 (19.3-51.7) % [place] % (Auto) 8.0 (4.7-12.5) % Eos % (Auto) 6.1 H (0.7-5.8) Baso % (Auto) 0.7 (0.1-1.2) % Neut # (Auto) 3.93 (1.56-6.13) K/mm3 Lymph # (Auto) 3.19 (1.18-3.74) K/mm3 [place] # (Auto) 0.67 H (0.24-0.36) K/mm3 Eos # (Auto) 0.51 H (0.04-0.36) K/mm3 Baso # (Auto) 0.06 (0.01-0.08) K/mm3 POC Glucose 109 H (70-99) mg/dL C-Reactive Protein <0.2 (<1.0) mg/dL Meds: Medications Discontinued Medications Generic Name Dose Route Start Last Admin Trade Name Freq PRN Reason Stop Dose Admin Aspirin 324 mg 03/05/21 09:22 03/05/21 10:14 Aspirin 81 Mg Tab.Chew PO 03/05/21 09:23 324 mg ONETIME ONE Administration Gadobenate Dimeglumine 20 ml 03/05/21 09:35 03/05/21 10:35 Gadobenate Dimeglumine 529 Mg/Ml 20 Ml Sdv IVPUSH 03/05/21 09:36 20 ml ONETIME ONE Administration Sodium Chloride 30 ml 03/05/21 09:45 03/05/21 10:35 Sodium Chloride 0.9% 10 Ml Syringe FLUSH 30 ml ASDIRECTED OSMAN Administration - Radiology Interpretation Free Text/Narrative:: MRI angiogram of the brain has been completed. Findings small left vertebral artery is seen which is believed to be developmental. Minute right vertebral artery is noted. There is patent flow in the basilar artery as well as within the posterior cerebral arteries. The left posterior cerebral artery is supplied by the anterior arch. Distal internal carotid arteries are patent. Normal flow in the to the middle and anterior cerebral arteries is seen. No focal stenosis or occlusion is seen. No discrete aneurysm is appreciated. Nothing acute is appreciated on MR angiogram study of the brain. MRI of the brain reveals the ventricles along with the basal cisterns and sulci over the convexities to be within normal limits for the patient's age. Several scattered areas of increased signal are seen within the periventricular white matter most likely representing minimal small vessel ischemic demyelination changes. No abnormal areas of diffusion are seen. Normal signal void is seen within the major cerebral arteries within the skull base. Visualized mastoid sinuses and paranasal sinuses show nothing acute. - Re-Assessments/Exams Free Text/Narrative Re-Assessment/Exam: 03/05/21 11:12 MRI angiogram of the neck has been performed. Bilateral common carotid arteries are patent. Bilateral internal carotid arteries are widely patent. External carotid arteries are patent. Smaller left vertebral artery which is developmental. Dominant right vertebral artery appreciated. There is contrast seen within the basilar artery, middle cerebral arteries, anterior cerebral arteries and posterior cerebral arteries. Both subclavian arteries are also patent. No focal stenosis or occlusion is seen. No dissection is noted. 03/05/21 11:37 patient reassured. Her vertigo symptoms now she indicates have been going on for at least 2 months when she looks to the right side. This may have caused her to have a off-balance feeling and listing to the right side. It also could have caused nausea and vomiting. But it should not of caused loss of ability to speak transiently. Therefore she will be treated for TIA with aspirin 81 mg in the morning and Plavix 75 mg once daily for the next 3 weeks. Her care provider is away and she knows that her cholesterol has been high and she has been trying to get it down with diet. I will place her on Plavix 10 mg once daily and she can review with her normal care provider when she gets back. Blood pressure is controlled. It is down to 136/86. Departure - Departure Time of Disposition: 11:38 Disposition: Home, Self-Care 01 Condition: Fair Clinical Impression: Transient ischemic attack, Vertigo Benign positional vertigo Qualifiers: Laterality: right Qualified Code(s): H81.11 - Benign paroxysmal vertigo, right ear - Discharge Information *PRESCRIPTION DRUG MONITORING PROGRAM REVIEWED*: Not Applicable *COPY OF PRESCRIPTION DRUG MONITORING REPORT IN PATIENT ELLI: Not Applicable Prescriptions: Rosuvastatin [Crestor] 10 mg PO DAILY #30 tab Clopidogrel Bisulfate [Plavix] 75 mg PO DAILY #21 tablet Instructions: Vertigo, [id number], Transient Ischemic Attack, [id number] Referrals: Soheila Carballo NP [Primary Care Provider] - Forms: ED Department Discharge Additional Instructions: Evaluation in the emergency room today in regards to development of neurological symptoms with loss of ability to speak transiently which we call expressive aphasia with worsening of right-sided weakness upon walking yesterday morning. CT of your head was done and Tamanna Galarza but was normal. MRI of the brain was carried out today and shows no evidence of stroke or damage to the brain. MRA of the neck and head were both done today and they show no signs of any blood vessel occlusion that would be worrisome for potential stroke and no aneurysm either. Therefore I would suggest treatment for transient ischemic attack which is a baby aspirin every morning 81 mg strength and Plavix 75 mg once daily in the morning for 3 weeks. Continue blood pressure medications as previously prescribed yesterday. The new medication will also be Crestor 10 mg once daily in the morning to help cholesterol. You will need to follow-up with your primary care provider in about 3 weeks time. You have rather persistent vertigo symptoms when turning her head to the right and if symptoms do not improve within the next few weeks an ear nose and throat consultation is in order. However MRI of the brain does not show any evidence of a tumor involving the 8th cranial nerve which sometimes will present in this fashion.
[2021-03-05] MEDS ORDERED: Gadobenate Dimeglumine 529 MG/ML 20 ML SDV IVPUSH ONE (09:35)
[2021-03-05] MEDS ORDERED: Sodium Chloride 0.9% 10 ML Syringe FLUSH SCH (09:45)
[2021-03-05 09:59] VITALS: BP 135/95; PULSE 68
--- NOTE | 2021-03-05 10:35 | MR ---
MRI brain Technique: T1 sagittal; T1, T2, T2 FLAIR and diffusion axial; T2 gradient echo axial images through the brain stem; T1 and T2 gradient echo coronal images were also obtained. Comparison: No prior intracranial imaging is available. Findings: Ventricles along with basal cisterns and sulci over the convexities are within normal limits for the patient's age. Several scattered areas of increased signal are seen within the periventricular white matter most likely representing minimal small vessel ischemic demyelination change. No abnormal areas of diffusion are seen. Normal signal void is seen within the major cerebral arteries within the skull base. Visualized mastoid sinuses and paranasal sinuses show nothing acute. Impression: 1. Findings felt compatible with minimal senescent change. 2. No acute diffusion abnormalities are appreciated. Diagnostic code #2
--- NOTE | 2021-03-05 10:35 | MR ---
MR angiogram of brain Technique: Multiple images were obtained through the arteries centered to the [place] of [place]. Multiple MIP images were then obtained. Comparison: No prior intracranial vascular imaging. Findings: Small left vertebral artery is seen which is believed to be developmental. Dominant right vertebral artery is noted. There is patent flow into the basilar artery as well as within the posterior cerebral arteries. Left posterior cerebral artery is supplied by the anterior arch. Distal internal carotid arteries are patent. Normal flow into the middle and anterior cerebral arteries are seen. No focal stenosis or occlusion is seen. No discrete aneurysm is appreciated. Impression: 1. Nothing acute is appreciated on MR angiogram study of the brain. Diagnostic code #1
--- NOTE | 2021-03-05 11:10 | MR ---
MR angiogram of neck Technique: Multiple contrast-enhanced MR angiogram study was obtained to the neck. Multiple MIP images were also obtained. Comparison: No prior neck imaging is available. Findings: Bilateral common carotid arteries are patent. Bilateral internal carotid arteries are widely patent. External carotid arteries are patent. Smaller left vertebral artery which is developmental. Dominant right vertebral artery is seen. There is contrast seen within the basilar artery, middle cerebral arteries, anterior cerebral arteries and posterior cerebral arteries. Both subclavian arteries are patent. No focal stenosis or occlusion is seen. No dissection is noted. Impression: 1. Diminutive size of the left vertebral artery which is developmental. 2. Other portions of the MR angiogram study of the neck appear within normal limits. Diagnostic code #1
== END 2021-03-05 11:50 | disposition home or self-care (01) ==
LOC: JD.ED 09:00
DX: G45.9 Transient cerebral ischemic attack, unspecified (principal); H81.11 Benign paroxysmal vertigo, right ear; E03.9 Hypothyroidism, unspecified; Z91.018 Allergy to other foods; Z79.02 Long term (current) use of antithrombotics/antiplatelets; Z79.899 Other long term (current) drug therapy
CPT/HCPCS: 36415; 70544; 70548; 70551; 82947; 85025; 86140; 99285; A9270; A9577; 99284

== ENCOUNTER 2024-12-17 08:57 | Emergency (ER) | payer MEDICARE, OTHER ==
[2024-12-17 11:26] VITALS: BP 119/71; PULSE 61
== END 2024-12-17 11:26 | disposition home or self-care (01) ==
LOC: JD.ED 08:57
DX: S00.11XA Contusion of right eyelid and periocular area, initial encounter (principal); S00.83XA Contusion of other part of head, initial encounter; I10 Essential (primary) hypertension; J45.909 Unspecified asthma, uncomplicated; E03.9 Hypothyroidism, unspecified; Z90.49 Acquired absence of other specified parts of digestive tract; Z79.899 Other long term (current) drug therapy; Z79.890 Hormone replacement therapy; Z91.018 Allergy to other foods; W01.0XXA Fall on same level from slipping, tripping and stumbling without subsequent striking against object, initial encounter
CPT/HCPCS: 70450; 70450-26; 99283